=== PATIENT | female | born 1935 | race Caucasian/White ===

== ENCOUNTER → 2016-09-02 16:36 | Outpatient (CLI) | payer MEDICARE, OTHER ==
[2014-04-29 06:49] VITALS: BMI 26.6
[~2016-09-02 16:36] MED LIST: ALENDRONATE SOD70 MG PO; AROMASIN25 MG PO; DIOVAN HCT 320/1 TA2 PO; KLOR-CON 1010 MEQ PO; NORVASC2.5 MG PO; VIBRAMYCIN 100100 MG PO
== END | disposition home or self-care (01) ==
LOC: D.MAMMO 14:00
DX: C50.912 Malignant neoplasm of unspecified site of left female breast (principal); Z12.31 Encounter for screening mammogram for malignant neoplasm of breast

== ENCOUNTER 2017-09-08 08:00 | Outpatient (CLI) | payer MEDICARE, OTHER ==
[2014-04-29 06:49] VITALS: BMI 26.6
== END 2017-09-08 09:00 | disposition home or self-care (01) ==
LOC: D.MAMMO 08:00
DX: Z08 Encounter for follow-up examination after completed treatment for malignant neoplasm (principal); Z85.3 Personal history of malignant neoplasm of breast

== ENCOUNTER → 2018-01-20 09:28 | Outpatient (CLI) | payer MEDICARE, OTHER ==
[2014-04-29 06:49] VITALS: BMI 26.6
== END | disposition home or self-care (01) ==
LOC: D.US 09:28
DX: R60.0 Localized edema (principal); M79.662 Pain in left lower leg

== ENCOUNTER 2018-09-16 09:00 | Outpatient (CLI) | payer MEDICARE, OTHER ==
[2014-04-29 06:49] VITALS: BMI 26.6
== END 2018-09-16 10:00 | disposition home or self-care (01) ==
LOC: D.MAMMO 09:00
PROVIDERS: ATTEND Internal Medicine Hematology & Oncology
DX: C50.412 Malignant neoplasm of upper-outer quadrant of left female breast (principal); C79.89 Secondary malignant neoplasm of other specified sites; I82.402 Acute embolism and thrombosis of unspecified deep veins of left lower extremity; D72.829 Elevated white blood cell count, unspecified